=== PATIENT | female | born 1940 | race Caucasian/White ===

== ENCOUNTER → 2016-11-19 | Outpatient (CLI) | payer MEDICARE, OTHER ==
[~2016-11-19] MED LIST: ASPIRIN81 M2 PO; BALANCED B-501 CAP PO; DIOVAN HCT 160-1 TAB PO; FISH OIL 1,2001 EACH PO; LEVAQUIN750 MG PO; LEVOTHYROXINE50 MCG PO; VITAMIN B12-FO1 EACH PO; VITAMIN C W/R1000 M1 PO; VITAMIN D32000 UNIT PO; VITAMIN K2 PO; WOMEN'S 50+ DA1 EACH PO
--- NOTE | ~2016-11-19 | BD1 ---
[facility] A Service of [facility] & [facility] / [facility] RADIOLOGY TEXT RESULTS PATIENT: TRSITAN ABBOTT LOCATION: [facility] : 42 UNIT #: [id number] AGE: [address]: MARLON GIBSON MD SEX: F ORDER DR: [id number] [facility] [address] [place], [place] [address] [id number] O MR#: [id number] #: [id number] NAME: TRISTAN ABBOTT : 1940 SEX: F STUDY DATE/TIME: 11/19/2016 16:21 UNIT: [facility] ROOM: STUDY DESCRIPTION: BD Dexa Bone Dens 1+ Site Attending Physician: Marlon Gibson M.D. Referring Physician: Marlon Gibson M.D. Ordering Physician: Marlon Gibson M.D. Primary Care Physician: Marlon Gibson M.D. MEDICAL IMAGING REPORT This report is preliminary unless electronic signature is present EXAM DXA scan, 11/19/2016. HISTORY Status post menopause with no hormone replacement therapy. Osteopenia. Removal of both ovaries. Arthritis. Hypertension with blood pressure medication for 20 years. Thyroid medication levothyroxine use for 15 years. Family history of osteoporosis in mother. Smoking history for 25 years. FINDINGS Bone mineral density in the lumbar spine from L1 through L4 is 1.274 g/cm2 which is 2.1 standard deviations above the mean when compared to the young adult reference population which is within the range of normal. This is 4.5 standard deviations above the mean when compared to the age-matched population. Compared with 11/16/2014, there has been an increase in bone mineral density in the lumbar spine of 2.4%. Bone mineral density in the left femoral neck was 0.695 g/cm2 which is 1.4 standard deviations below the mean when compared to the young adult reference population which is characteristic of osteopenia. This is 0.7 standard deviations above the mean when compared to the age-matched population. Compared with 11/16/2014, there has been a decrease in bone mineral density in the left hip of 1.1%. IMPRESSION Bone mineral density in the lumbar spine within the range of normal and within the left hip characteristic of osteopenia. Compared with 11/16/2014, there has been an increase in bone mineral density in the lumbar spine and a decrease in bone mineral density in the left hip. Dictated by... [facility] A Service of [facility] RADIOLOGY TEXT RESULTS PATIENT: TRISTAN ABBOTT LOCATION: [facility] : 42 UNIT #: [id number] AGE: [address]: MARLON GIBSON MD SEX: F ORDER DR: Tuan Li M.D. THIS IS AN ELECTRONICALLY VERIFIED REPORT Tuan Li M.D. at 11/20/2016 10:18 AM BENJAMIN/true TD: 11/19/2016 22:12 JOB #: [id number] MEDICAL IMAGING REPORT Page 1 of 1 COPY
--- NOTE | ~2016-11-19 | MY29 ---
[facility] A Service of [facility] RADIOLOGY TEXT RESULTS PATIENT: TRISTAN ABBOTT LOCATION: [facility] : 41 UNIT #: [id number] AGE: [address]: MARLON GIBSON MD SEX: F ORDER DR: [id number] [facility] [address] [place], [place] [address] [id number] O MR#: [id number] Acc #: [id number] NAME: TRISTAN ABBOTT : 1940 SEX: F STUDY DATE/TIME: 11/19/2016 16:20 UNIT: [facility] ROOM: STUDY DESCRIPTION: MY CHEIKH SCREENING W/ CAD BILAT Attending Physician: Marlon Gibson M.D. Referring Physician: Marlon Gibson M.D. Ordering Physician: Marlon Gibson M.D. Primary Care Physician: Marlon Gibson M.D. MEDICAL IMAGING REPORT This report is preliminary unless electronic signature is present EXAM Digital screening mammogram, 11/19/2016, [facility]. HISTORY 76-year-old woman, no risk elevation. Annual screen. COMPARISON Mammograms date to 01/14/2006 with most recent 11/19/2015. FINDINGS Digital imaging of each breast was completed utilizing a two-view examination of each breast in craniocaudal and mediolateral-oblique projections. Review and interpretation of digital mammograms include a second review in conjunction with FDA-approved CAD device. There is a normal parenchymal presentation bilaterally consistent with the patient's age. There are no breast masses imaged and no parenchymal asymmetry is visualized. There are no suspicious microcalcifications and I see no focal architectural disturbance. IMPRESSION Negative screening digital mammogram. One-year followup recommended. Patients over the age of 40 are entered into a reminder system with target due date for the next mammogram. A result letter will also be sent to the patient. BIRADS: 1 Negative ADDENDUM Breast parenchyma is fatty replaced. [facility] A Service [facility] RADIOLOGY TEXT RESULTS PATIENT: TRISTAN ABBOTT LOCATION: [facility] : 41 UNIT #: [id number] AGE: [address]: MARLON GIBSON MD SEX: F ORDER DR: Dictated by... Moise Shipley M.D. THIS IS AN ELECTRONICALLY VERIFIED REPORT Moise Shipley M.D. at 11/20/2016 10:45 AM SERGIO/jam TD: 11/20/2016 10:10 JOB #: [id number] MEDICAL IMAGING REPORT Page 1 of 1 COPY
== END | disposition home or self-care (01) ==
LOC: CWCC 10-08 15:45
DX: Z12.31 Encounter for screening mammogram for malignant neoplasm of breast (principal); M89.9 Disorder of bone, unspecified; M85.88 Other specified disorders of bone density and structure, other site
CPT/HCPCS: 77080; G0202